=== PATIENT | male | born 1945 | race Asian ===

== ENCOUNTER 2018-06-23 08:36 | Outpatient (CLI) | payer OTHER ==
[2018-06-23 09:14] LABS: PLATELET COUNT 278 K/uL (142-355)
[2018-06-23 09:18] LABS: POTASSIUM 4.4 mmol/L (3.6-5.2)
== END 2018-06-23 23:11 | disposition home or self-care (01) ==
LOC: LABW 08:36
PROVIDERS: Internal Medicine
DX: I10 Essential (primary) hypertension (principal); E11.9 Type 2 diabetes mellitus without complications; E55.9 Vitamin D deficiency, unspecified
CPT/HCPCS: 36415; 80053; 80061; 81000; 82043; 82306; 82570; 83036; 83735; 84100; 84155; 85027

== ENCOUNTER 2018-07-09 15:20 | Emergency (ER) | payer OTHER ==
[~2018-07-09] VITALS: Ht 167.6 cm; Wt 98.0 kg
[2018-07-09 15:30] VITALS: BP 133/74; TEMP 98.1
== END 2018-07-09 15:35 | disposition home or self-care (01) ==
LOC: ED 15:20
DX: E11.9 Type 2 diabetes mellitus without complications (principal)
CPT/HCPCS: 99281

== ENCOUNTER 2018-08-31 08:56 | Outpatient (CLI) | payer OTHER ==
[2018-08-31 09:17] LABS: PLATELET COUNT 262 K/uL (142-355)
[2018-08-31 09:48] LABS: POTASSIUM 4.5 mmol/L (3.6-5.2)
== END 2018-08-31 19:22 | disposition home or self-care (01) ==
LOC: LABW 08:56
PROVIDERS: Internal Medicine
DX: N18.3 Chronic kidney disease, stage 3 (moderate) (principal)
CPT/HCPCS: 36415; 80053; 82306; 83735; 84100; 85027

== ENCOUNTER 2018-11-30 13:01 | Emergency (ER) | payer OTHER ==
[~2018-11-30] VITALS: Ht 167.6 cm; Wt 98.0 kg
[2018-11-30 13:39] VITALS: BP 131/76; TEMP 97.8
== END 2018-11-30 13:40 | disposition home or self-care (01) ==
LOC: ED 13:01
PROC: 0H9FXZZ Drainage of Right Hand Skin, External Approach (ICD-10-PCS; principal; 2018-11-30)
DX: L03.011 Cellulitis of right finger (principal)
CPT/HCPCS: 99282; 99283

== ENCOUNTER 2018-12-12 07:59 | Outpatient (CLI) | payer OTHER | END 2018-12-12 08:03 | disposition short-term general hospital (02) | LOC: AMB 07:59 | DX: R25.1 Tremor, unspecified (principal); R19.7 Diarrhea, unspecified; R53.1 Weakness; E10.9 Type 1 diabetes mellitus without complications | CPT/HCPCS: A0425; A0427 ==